=== PATIENT | female | born 1990 | race Caucasian/White ===

== ENCOUNTER → 2020-01-28 | Outpatient (CLI) | payer OTHER ==
--- NOTE | 2020-01-29 01:22 | REP ---
RIGHT 5TH DIGIT: Four views of right 5th digit performed. There is a nondisplaced fracture at the base of the distal phalanx, best seen on the lateral view. Otherwise, there is no other acute fracture, dislocation, or intrinsic bone disease. There is associated soft tissue swelling. Electronically Signed by Kenny Singh MD 01/29/2020 09:50 A
== END ==
LOC: M LRY 16:58
PROVIDERS: ATTEND Physician Assistant
DX: S62.666A Nondisplaced fracture of distal phalanx of right little finger, initial encounter for closed fracture (principal); W54.8XXA Other contact with dog, initial encounter; Y93.K9 Activity, other involving animal care; Y92.9 Unspecified place or not applicable

== ENCOUNTER → 2021-01-05 | Outpatient (CLI) | payer BC ==
--- NOTE | 2021-01-05 14:30 | REP ---
INDICATION: FOOSH INJURY BILATERALLY ON 01/04/21. COMPARISON: None. TECHNIQUE: Bilateral FINDINGS: The joint spaces are symmetric and relatively well maintained. There is no evidence of acute fracture or destructive osseous lesion. Mild intra digital degenerative changes are seen bilaterally. IMPRESSION: No acute abnormality <Electronically signed by Adam Erickson > 01/05/21 1425
--- NOTE | 2021-01-05 14:40 | REP ---
INDICATION: FOOSH INJURY BILATERALLY ON 01/04/21 COMPARISON: None. TECHNIQUE: AP, lateral, bilateral oblique views left wrist. FINDINGS: No definite acute fracture or dislocation is appreciated. However, lateral view only demonstrates a very small somewhat linear irregular density anterior to the carpal bones at the midcarpal level which is nonspecific. This may represent artifact, but correlation with point of tenderness is recommended. IMPRESSION: No definite acute fracture or dislocation. However, subtle irregularity as noted above warrants correlation. <Electronically signed by Alber Fernandez > 01/05/21 [id number]
== END ==
LOC: M WUC 14:07
PROVIDERS: ATTEND Nurse Practitioner Family
DX: M25.532 Pain in left wrist (principal); W01.0XXA Fall on same level from slipping, tripping and stumbling without subsequent striking against object, initial encounter; M79.642 Pain in left hand; M79.641 Pain in right hand